=== PATIENT | female | born 1980 | race Caucasian/White ===

== ENCOUNTER 2025-08-14 07:32 | Emergency (ER) | payer BC, MEDICAID ==
[~2025-08-14] VITALS: Ht 177.8 cm; Wt 75.0 kg
[2025-08-14 07:39] VITALS: O2SAT 100
[2025-08-14] MEDS: IOHEXOL-350 100 ML BOTTLE ONE (08:27)
[2025-08-14 08:35] LABS: BASOPHILS % 0.5 % (0.0-2.0); EOSINOPHILS % 1.4 % (0.0-5.0); HEMATOCRIT. 35.5 % (36.0-48.0); HEMOGLOBIN. 12.0 g/dL (12.0-16.0); LYMPHOCYTES % 35.9 % (20.0-50.0); MEAN PLATELET VOLUME 8.0 fl (7.4-10.4); MONOCYTES % 13.2 % (2.0-8.0); NEUTROPHILS % 49.0 % (40.0-76.0); PLATELET 245 x1000/uL (130-400); RED BLOOD CELL COUNT 3.85 mill/uL (4.2-5.4); RED CELL DISTRIBUTION WIDTH 12.2 % (11.6-14.6)
[2025-08-14 08:48] LABS: INR 1.0
[2025-08-14 09:01] LABS: CREATININE 0.7 mg/dL (0.6-1.0)
[2025-08-14 09:02] LABS: TROPONIN I HIGH SENSITIVITY < 4 ng/L (3.0-34); UREA NITROGEN BLOOD 12 mg/dL (9-23)
[2025-08-14 09:03] LABS: ASPARTATE AMINOTRANSFERASE 23 IU/L (<34)
[2025-08-14 09:04] LABS: BILIRUBIN DIRECT 0.2 mg/dL (<=3.0); BILIRUBIN TOTAL 0.6 mg/dL (0.1-1.0); PROTEIN TOTAL 6.5 g/dL (6.0-8.3)
[2025-08-14 09:15] LABS: HCG SCREEN NEGATIVE
[2025-08-14] MEDS: ACETAMINOPHEN 1000MG/100ML 100 ML IV ONE (09:45)
[2025-08-14] MEDS: MECLIZINE 25MG TABLET PO ONE (09:46)
[2025-08-14] MEDS: LACTATED RINGERS 1,000 ML IV SCH (09:46)
[2025-08-14] MEDS: METOCLOPRAMIDE HCL 10MG/2ML VIAL IV ONE (09:46)
[2025-08-14 10:07] VITALS: BP 98/51; PULSE 62; RESP 12; TEMP 36.6; O2SAT 100
[2025-08-14 11:36] LABS: TROPONIN I HIGH SENSITIVITY < 4 ng/L (3.0-34)
== END 2025-08-14 11:05 | disposition left against medical advice (07) ==
LOC: ER 07:32 → EDBEDREQ 10:48 → EDBEDREQTM 10:48 → ER 11:05 → CMPBEDREQ 12:56
DX: R42 Dizziness and giddiness (principal); M77.9 Enthesopathy, unspecified; R47.1 Dysarthria and anarthria; R10.20 Pelvic and perineal pain unspecified side; Z88.1 Allergy status to other antibiotic agents; Z88.5 Allergy status to narcotic agent; Z79.899 Other long term (current) drug therapy
CPT/HCPCS: 80076; 80048; 84703; 85025; 85610; 85730; 84484; 36415; 71045; 70496; 70498; 70450; 93005; 96361; 96374; 99285; G0480; Q9967; J8597; J2765; Z7610 ×2; 80320; A4606; J0131